=== PATIENT | female | born 1970 | race Caucasian/White ===

== ENCOUNTER 2017-04-28 15:26 | Emergency (ER) | payer MEDICAID ==
[~2017-04-28] VITALS: Ht 160 cm; Wt 60.5 kg
[2017-04-28 15:37] VITALS: BP 110/67
== END 2017-04-28 18:16 | disposition left against medical advice (07) ==
LOC: ED 15:26
DX: Z53.21 Procedure and treatment not carried out due to patient leaving prior to being seen by health care provider (principal)

== ENCOUNTER 2018-12-23 22:24 | Emergency (ER) | payer MEDICAID ==
[~2018-12-23] VITALS: Ht 160 cm; Wt 66.2 kg
[2018-12-23 22:41] VITALS: BP 145/93; Ht 160 cm; Wt 66.2 kg
== END 2018-12-24 00:34 | disposition left against medical advice (07) ==
LOC: ED 22:24
DX: Z53.21 Procedure and treatment not carried out due to patient leaving prior to being seen by health care provider (principal)